=== PATIENT | male | born 2000 | race Caucasian/White ===

== ENCOUNTER 2023-01-14 16:25 | Emergency (ER) | payer OTHER ==
[2023-01-14] MEDS ORDERED: Lidocaine 1% 5 ML VIAL ONE (16:31)
[2023-01-14] MEDS ORDERED: Lidocaine 1% 50 ML MDV ONE (16:31)
[2023-01-14] MEDS ORDERED: ceFAZolin 1 GM in Sodium Chloride 0.9% 50 ML IV ONE (16:36)
[2023-01-14 16:53] LABS: BASOPHILS PERCENT AUTO 0.2 % (0.0-1.5); EOSINOPHILS ABSOLUTE AUTO 0.2 K/uL (0.0-0.7); EOSINOPHILS PERCENT AUTO 2.3 % (0.0-7.0); HEMATOCRIT 45.1 % (38.0-50.0); HEMOGLOBIN 15.3 g/dL (13.0-17.0); LYMPHOCYTES ABSOLUTE AUTO 2.8 K/uL (0.6-2.4); LYMPHOCYTES PERCENT AUTO 42.7 % (16.0-40.0); MEAN CORPUSCULAR HGB CONC 33.9 g/dL (31.0-37.0); MEAN CORPUSCULAR VOLUME 91.3 fL (80.0-98.0); MONOCYTES ABSOLUTE AUTO 0.4 K/uL (0.0-0.8); MONOCYTES PERCENT AUTO 6.5 % (0.0-15.0); NEUTROPHILS ABSOLUTE AUTO 3.2 K/uL (1.4-5.7); NEUTROPHILS PERCENT AUTO 48.3 % (48.0-80.0); NRBC ABSOLUTE 0 K/uL; PLATELET COUNT,PLT 209 K/uL (150-400); RED BLOOD CELL COUNT 4.94 M/uL (4.50-5.90); WHITE BLOOD CELL COUNT,WBC 6.61 K/uL (4.0-11.0)
[2023-01-14] MEDS ORDERED: Lidocaine 1% 5 ML VIAL INJECT ONE (16:58)
[2023-01-14 17:00] LABS: INR 1.06 (0.86-1.11)
[2023-01-14 17:13] LABS: A/G RATIO 1.1 (0.9-1.6); ALANINE AMINOTRANSFERASE,ALT 37 IU/L (14-63); ALBUMIN 4.2 g/dL (3.4-5.0); ALKALINE PHOSPHATASE 122 U/L (46-116); ASPARTATE AMNIOTRANSFERASE,AST 34 IU/L (15-37); BILIRUBIN TOTAL 0.6 mg/dL (0.2-1.0); BLOOD UREA NITROGEN,BUN 20 mg/dL (7.0-18.0); CALCIUM 8.7 mg/dL (8.5-10.1); CARBON DIOXIDE,CO2 28.4 mmol/L (21.0-32.0); CHLORIDE,CL 103 mmol/L (98-107); CREATININE 1.1 mg/dL (0.8-1.3); EST CRCL DRUG DOSING (CG) 113.29 mL/min; ETHANOL BLOOD MEDICAL <3 mg/dL; GLUCOSE RANDOM 109 mg/dL (74-106); POTASSIUM,K 3.8 mmol/L (3.5-5.1); SODIUM,NA 138 mmol/L (136-148)
[2023-01-14 17:15] LABS: ESTIMATED GFR 98 mL/min (>60)
== END 2023-01-14 20:38 ==
LOC: MW.ED 16:25
DX: S02.2XXA Fracture of nasal bones, initial encounter for closed fracture (principal); S02.40DB Maxillary fracture, left side, initial encounter for open fracture; S02.40CB Maxillary fracture, right side, initial encounter for open fracture; S02.5XXB Fracture of tooth (traumatic), initial encounter for open fracture
CPT/HCPCS: 36415; 70450; 70486; 80053; 80307; 85025; 85610; 86850; 86900; 86901; 96365; 99285; J0690; J3490